=== PATIENT | female | born 1950 | race Caucasian/White ===

== ENCOUNTER → 2017-08-09 | Outpatient (CLI) | payer OTHER ==
[~2017-08-09] MED LIST: ACAI; ALBU90OI INH; ATEN25 PO; ATEN50 PO; Aspir 8181 MG PO; CELE200 PO; CITA10S PO; CITALOPRAM PO; CLON.1 PO; CLON.2 PO; CLON2 PO; Cymbalta60 MG PO; DICL25ER PO; DICL50ER PO; DIPH50 PO; DOXY100 PO; DULO60 PO; HYDACE5 PO; HYDRA25 PO; Hydrochlorothia25 MG PO; LEVSOD25 PO; LEVSOD88 PO; LISI20 PO; LOPE2C PO; LOSA25 PO; LOSA50 PO; MEDR2.5 PO; METF500 PO; METO100ER PO; METO50ER PO; OMEP20ER PO; OMEPRAZOLE PO; PANT40 PO; SOLI5 PO; TOLT2ER PO; Vitamin
[2017-08-11 15:17] LABS: HPV Genotype 16 Not Detected (NOTDET); HPV Genotype 18 Not Detected (NOTDET)
[2017-08-21 11:17] LABS: HPV High Risk Other Not Detected (NOTDET)
== END | disposition home or self-care (01) ==
LOC: LAB 10:58
PROVIDERS: Obstetrics & Gynecology
DX: Z01.419 Encounter for gynecological examination (general) (routine) without abnormal findings (principal)
CPT/HCPCS: 87624; G0123

== ENCOUNTER → 2018-11-13 | Outpatient (CLI) | payer OTHER | END | disposition home or self-care (01) | LOC: LAB SHORT 10:59 → LAB 10:59 | PROVIDERS: Advanced Practice Midwife | DX: Z01.419 Encounter for gynecological examination (general) (routine) without abnormal findings (principal) | CPT/HCPCS: G0123 ==

== ENCOUNTER 2019-03-12 18:09 | Emergency (ER) | payer OTHER ==
[~2019-03-12] VITALS: Ht 162.6 cm; Wt 145.2 kg
[2019-03-12 18:45] LABS: BASOPHILS ABSOLUTE AUTO 0.11 K/mm3 (0.00-0.23); BASOPHILS PERCENT AUTO 1 % (0-2); EOSINOPHILS ABSOLUTE AUTO 0.61 K/mm3 (0.00-0.68); EOSINOPHILS PERCENT AUTO 3 % (0-6); Hematocrit 48.7 % (33.0-51.0); Hemoglobin 15.5 g/dL (11.5-16.0); IMMATURE GRAN ABSOLUTE AUTO 0.19 K/mm3 (0.00-0.10); IMMATURE GRAN PERCENT AUTO 1 % (0-1); LYMPHOCYTES PERCENT AUTO 15 % (21-46); MONOCYTES ABSOLUTE AUTO 1.37 K/mm3 (0.16-1.47); MONOCYTES PERCENT AUTO 6 % (4-13); Mean Corpuscular HGB 29.2 pg (26.0-34.0); Mean Corpuscular HGB Conc 31.8 g/dL (31.5-36.5); Mean Corpuscular Volume 92 fL (80-100); Mean Platelet Volume 11.6 fL (9.1-12.4); NEUTROPHILS PERCENT AUTO 74 % (41-73); Platelet Count 355 K/mm3 (150-400); RDW Coefficient Variation 14.8 % (11.7-14.2); RDW Standard Deviation 49.5 fL (35.1-46.3); Red Blood Cell Count 5.31 M/mm3 (3.80-5.20); White Blood Cell Count 21.48 K/mm3 (4.00-11.30)
[2019-03-12 19:07] LABS: Albumin, Blood 3.3 g/dL (3.4-5.0); Albumin/Globulin Ratio 0.9 (0.8-1.8); Bilirubin, Total 0.3 mg/dL (0.1-1.0); Bun/Creatinine Ratio 41.1 (12.0-20.0); Calcium, Blood 9.8 mg/dL (8.5-10.1); Creatinine, Blood 1.12 mg/dL (0.40-1.00); Globulin, Blood 3.7 g/dL (2.2-4.0)
[2019-03-12 20:22] LABS: Source, Urine Clean Catch
[2019-03-12 20:28] LABS: Appearance, Urine Clear (Clear); Blood, Urine Neg (Neg); Color, Urine Amber (P-Yellow); Glucose Qualitative, Urine Neg (Neg); Ketones, Urine 1+ (Neg); Leukocyte Esterase, Urine 1+ (Neg); Nitrite, Urine Neg (Neg); Protein, Urine 1+ (Neg); Specific Gravity, Urine 1.025 (1.003-1.022); Urobilinogen, Urine 1+ (Normal)
[2019-03-12 20:33] LABS: Bilirubin, Urine 1+ (Neg)
[2019-03-12 20:34] LABS: Bacteria Many /hpf; Mucus Light (0-Heavy); Red Blood Cells, Urine 0-2 /hpf (0-2); Squamous Epithelial Cells Mod /hpf (Few)
[2019-03-12] MEDS ORDERED: CEPH500 PO (21:00)
== END 2019-03-12 21:17 | disposition home or self-care (01) ==
LOC: ER 18:09
PROVIDERS: Emergency Medicine
DX: D72.828 Other elevated white blood cell count (principal); Z88.2 Allergy status to sulfonamides; Z88.5 Allergy status to narcotic agent; Z91.040 Latex allergy status; Z88.8 Allergy status to other drugs, medicaments and biological substances; Z79.899 Other long term (current) drug therapy; Z79.82 Long term (current) use of aspirin; I10 Essential (primary) hypertension; E11.9 Type 2 diabetes mellitus without complications; F32.9 Major depressive disorder, single episode, unspecified; Z87.891 Personal history of nicotine dependence
CPT/HCPCS: 36415; 71046; 80053; 81001; 85025; 87086; 99283-25

== ENCOUNTER 2019-09-09 15:54 | Emergency (ER) | payer OTHER ==
[~2019-09-09] VITALS: Ht 162.6 cm; Wt 154.7 kg
[~2019-09-09 15:54] MED LIST changes: +CEPH500 PO
[2019-09-09 17:02] LABS: BASOPHILS ABSOLUTE AUTO 0.08 K/mm3 (0.00-0.23); BASOPHILS PERCENT AUTO 1 % (0-2); EOSINOPHILS ABSOLUTE AUTO 0.19 K/mm3 (0.00-0.68); EOSINOPHILS PERCENT AUTO 2 % (0-6); Hematocrit 49.3 % (33.0-51.0); Hemoglobin 15.3 g/dL (11.5-16.0); IMMATURE GRAN ABSOLUTE AUTO 0.07 K/mm3 (0.00-0.10); IMMATURE GRAN PERCENT AUTO 1 % (0-1); LYMPHOCYTES ABSOLUTE AUTO 1.96 K/mm3 (0.84-5.20); LYMPHOCYTES PERCENT AUTO 17 % (21-46); MONOCYTES ABSOLUTE AUTO 0.62 K/mm3 (0.16-1.47); MONOCYTES PERCENT AUTO 5 % (4-13); Mean Corpuscular HGB 28.5 pg (26.0-34.0); Mean Corpuscular Volume 92 fL (80-100); Mean Platelet Volume 11.4 fL (9.1-12.4); NEUTROPHILS ABSOLUTE AUTO 8.85 K/mm3 (1.96-9.15); NEUTROPHILS PERCENT AUTO 75 % (41-73); Platelet Count 332 K/mm3 (150-400); RDW Coefficient Variation 14.2 % (11.7-14.2); Red Blood Cell Count 5.37 M/mm3 (3.80-5.20); White Blood Cell Count 11.77 K/mm3 (4.00-11.30)
[2019-09-09 17:23] LABS: Alanine Aminotransfer (ALT/SGP 18 U/L (12-78); Albumin, Blood 3.5 g/dL (3.4-5.0); Albumin/Globulin Ratio 0.9 (0.8-1.8); Alk Phos 114 U/L (50-136); Anion Gap 3 mmol/L (6-16); Aspartate Aminotrans (AST/SGOT 9 U/L (12-37); Bilirubin, Total 0.3 mg/dL (0.1-1.0); Blood Urea Nitrogen 18 mg/dL (8-24); Bun/Creatinine Ratio 21.5 (12.0-20.0); CO2, Blood 29 mmol/L (21-32); Calcium, Blood 10.1 mg/dL (8.5-10.1); Chloride, Blood 105 mmol/L (98-108); Creatinine, Blood 0.84 mg/dL (0.40-1.00); Globulin, Blood 4.1 g/dL (2.2-4.0); Glomerular Filtration Rate >60 (60-); Glucose, Blood 207 mg/dL (70-99); Potassium, Blood 3.5 mmol/L (3.5-5.5); Sodium, Blood 137 mmol/L (136-145); Total Protein, Blood 7.6 g/dL (6.4-8.2)
== END 2019-09-09 20:57 | disposition home or self-care (01) ==
LOC: ER 15:54
PROVIDERS: Physician Assistant
DX: F41.9 Anxiety disorder, unspecified (principal); G25.2 Other specified forms of tremor; I10 Essential (primary) hypertension; E11.9 Type 2 diabetes mellitus without complications; F32.9 Major depressive disorder, single episode, unspecified; Z79.899 Other long term (current) drug therapy; Z88.2 Allergy status to sulfonamides; Z88.5 Allergy status to narcotic agent
CPT/HCPCS: 36415; 80053; 85025; 99283

== ENCOUNTER 2020-03-25 10:04 | Day surgery (SDC) | payer OTHER ==
[~2020-03-25] VITALS: Ht 165.1 cm; Wt 158.8 kg
--- NOTE | 2020-03-25 10:46 | NUR ---
03/25/20 [address] MCNALLY AT BEDSIDE ADMINISTERING 10CC 2% LIDOCAINE WITH 1:100,000 EPI INTO LEFT WRIST. PT MONITERED VIA PULSE OX.
--- NOTE | 2020-03-25 11:19 | NUR ---
03/25/20 Shoshana Batres PT TRANSFERED FROM BED TO CHAIR WITH ASSISTANCE. PT AWAKE, ALERT AND ORIENTED. PT VS WNL. PT DENIES ANY PAIN AT THIS TIME. PT TOLERATING SNACKS. ICE TO LEFT ARM AND ELEVATED.
== END 2020-03-25 11:37 | disposition home or self-care (01) ==
LOC: ORSCSDS 10:04
PROVIDERS: Orthopaedic Surgery
PROC: 01N54ZZ Release Median Nerve, Percutaneous Endoscopic Approach (ICD-10-PCS; principal; 2020-03-25 11:00)
DX: G56.02 Carpal tunnel syndrome, left upper limb (principal); I10 Essential (primary) hypertension; K21.9 Gastro-esophageal reflux disease without esophagitis; E66.01 Morbid (severe) obesity due to excess calories; Z68.43 Body mass index [BMI] 50.0-59.9, adult; Z79.82 Long term (current) use of aspirin; Z79.899 Other long term (current) drug therapy
CPT/HCPCS: 82947; J0690; J2250; J2710; J3010; J7120

== ENCOUNTER 2020-09-17 01:37 | Inpatient (IN) | payer OTHER, MEDICARE ==
[~2020-09-17] VITALS: Ht 162.6 cm; Wt 160.7 kg
[~2020-09-17 01:37] MED LIST changes: -LOSA50 PO; +LOSARTAN POTAS100 M1 PO; +METO100 PO; -METO100ER PO
[2020-09-17 05:28] LABS: International Normalized Ratio 1.02; Prothrombin Time Results 10.9 Sec (9.7-11.5)
[2020-09-17 05:45] LABS: Influenza A, PCR NEGATIVE (NEGATIVE); Influenza B, PCR NEGATIVE (NEGATIVE); Resp Syncytial Virus, PCR NEGATIVE (NEGATIVE); SARS-Cov-2 (COVID-19) PCR, MMC NEGATIVE (NEGATIVE)
[2020-09-17 05:48] LABS: D-Dimer, Quantitative 0.91 mg/L FEU (0.00-0.52)
[2020-09-17 05:50] LABS: BASOPHILS ABSOLUTE AUTO 0.12 K/mm3 (0.00-0.23); BASOPHILS PERCENT AUTO 1 % (0-2); EOSINOPHILS ABSOLUTE AUTO 0.03 K/mm3 (0.00-0.68); EOSINOPHILS PERCENT AUTO 0 % (0-6); Hematocrit 47.7 % (33.0-51.0); Hemoglobin 14.3 g/dL (11.5-16.0); IMMATURE GRAN ABSOLUTE AUTO 0.27 K/mm3 (0.00-0.10); IMMATURE GRAN PERCENT AUTO 1 % (0-1); LYMPHOCYTES ABSOLUTE AUTO 1.23 K/mm3 (0.84-5.20); LYMPHOCYTES PERCENT AUTO 6 % (21-46); MONOCYTES ABSOLUTE AUTO 1.08 K/mm3 (0.16-1.47); MONOCYTES PERCENT AUTO 5 % (4-13); Mean Corpuscular HGB 27.9 pg (26.0-34.0); Mean Corpuscular Volume 93 fL (80-100); Mean Platelet Volume 12.2 fL (9.1-12.4); NEUTROPHILS ABSOLUTE AUTO 18.43 K/mm3 (1.96-9.15); NEUTROPHILS PERCENT AUTO 87 % (41-73); Platelet Count 306 K/mm3 (150-400); RDW Coefficient Variation 14.6 % (11.7-14.2); RDW Standard Deviation 50.4 fL (35.1-46.3); Red Blood Cell Count 5.12 M/mm3 (3.80-5.20); White Blood Cell Count 21.16 K/mm3 (4.00-11.30)
[2020-09-17 05:50] LABS: Bun/Creatinine Ratio 18.3 (12.0-20.0); Calcium, Blood 9.4 mg/dL (8.5-10.1); Creatinine, Blood 0.99 mg/dL (0.40-1.00)
[2020-09-17 07:48] LABS: Troponin I 0.353 ng/mL (0.000-0.040)
--- NOTE | 2020-09-17 10:01 | NUR ---
ECHOCARDIOGRAM COMPLETE
[2020-09-17] MEDS ORDERED: LOSARTAN POTAS100 MG PO (13:10)
[2020-09-17] MEDS ORDERED: ROSU5 PO (13:11)
[2020-09-17] MEDS ORDERED: MINO2.5 PO (13:12)
[2020-09-17] MEDS ORDERED: TOLT4 PO (13:13)
[2020-09-17] MEDS ORDERED: EUTHYROX125 MCG PO (13:14)
[2020-09-17] MEDS ORDERED: VENL75ER PO (13:21)
[2020-09-17] MEDS ORDERED: HYDROCODONE-AC1 EA11 PO (13:53)
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
[2020-09-17 14:54] LABS: Base Excess Venous 4.6 mmol/L; Bicarbonate Venous 27.6 mmol/L (24.0-30.0); PCO2 Venous 52 mmHg (38-42); PO2 Venous 111 mmHg (38-42); pH Blood Venous 7.37 (7.34-7.37)
--- NOTE | 2020-09-17 18:22 | NUR ---
SHIFT SUMMARY NO ACUTE EVENTS THIS SHIFT, VSS. PATIENT ALERT AND ORIENTED, O2 STABLE IN 90S ON 4 L NASAL CANNULA. PATIENT DENIES CHEST PAIN/PRESSURE THIS SHIFT, ENDORSES SHORTNESS OF BREATH. TROP. TRENDED DOWN THIS SHIFT, FROM 0.35 TO 0.18. PATIENT IS ABLE TO MINIMALLY ASSIST WITIH REPOSITIONING IN BED, NO AMBULATION NOTED THIS SHIFT. PATIENT ENDORSES USING A WALKER AT HOME. HEPARIN GTT STOPPED THIS SHIFT, CHANGED TO LOVENOX.
[2020-09-18 05:01] LABS: BASOPHILS ABSOLUTE AUTO 0.07 K/mm3 (0.00-0.23); BASOPHILS PERCENT AUTO 1 % (0-2); EOSINOPHILS ABSOLUTE AUTO 0.41 K/mm3 (0.00-0.68); EOSINOPHILS PERCENT AUTO 3 % (0-6); Hematocrit 44.5 % (33.0-51.0); Hemoglobin 13.5 g/dL (11.5-16.0); IMMATURE GRAN ABSOLUTE AUTO 0.09 K/mm3 (0.00-0.10); IMMATURE GRAN PERCENT AUTO 1 % (0-1); LYMPHOCYTES ABSOLUTE AUTO 2.05 K/mm3 (0.84-5.20); LYMPHOCYTES PERCENT AUTO 15 % (21-46); MONOCYTES ABSOLUTE AUTO 1.17 K/mm3 (0.16-1.47); MONOCYTES PERCENT AUTO 8 % (4-13); Mean Corpuscular HGB 27.8 pg (26.0-34.0); Mean Corpuscular HGB Conc 30.3 g/dL (31.5-36.5); Mean Corpuscular Volume 92 fL (80-100); Mean Platelet Volume 11.5 fL (9.1-12.4); NEUTROPHILS ABSOLUTE AUTO 10.07 K/mm3 (1.96-9.15); NEUTROPHILS PERCENT AUTO 73 % (41-73); Platelet Count 294 K/mm3 (150-400); RDW Coefficient Variation 14.6 % (11.7-14.2); RDW Standard Deviation 49.7 fL (35.1-46.3); Red Blood Cell Count 4.86 M/mm3 (3.80-5.20); White Blood Cell Count 13.86 K/mm3 (4.00-11.30)
[2020-09-18 05:32] LABS: Albumin, Blood 3.1 g/dL (3.4-5.0); Albumin/Globulin Ratio 0.8 (0.8-1.8); Bilirubin, Total 0.4 mg/dL (0.1-1.0); Bun/Creatinine Ratio 16.2 (12.0-20.0); Calcium, Blood 9.8 mg/dL (8.5-10.1); Creatinine, Blood 1.48 mg/dL (0.40-1.00); Globulin, Blood 4.1 g/dL (2.2-4.0); Phosphorus, Blood 2.3 mg/dL (2.5-4.9); Potassium, Blood 3.9 mmol/L (3.5-5.5); Total Protein, Blood 7.2 g/dL (6.4-8.2)
--- NOTE | 2020-09-18 06:09 | NUR ---
SHIFT SUMMARY PT ALERT AND ORIENTED X 4. HR STABLE. BP STABLE. OXYGEN SATURATION MAINTAINED ABOVE 92% ON 4 L OF OXYGEN VIA NC. PT TURNED Q 2 HRS AND NEEDED FOR COMFORT. DEPENDS IN PLACE FOR INCONTINENCE. PT IN ENTERIC PRECAUTIONS FOR RULE OUT C-DIF. NO CP REPORTED. PT REPORTS PAIN IN L HIP, MEDICATED PER EMAR. PT REPORTS RELIEF. WILL CONTINUE TO MONITOR UNTIL REP0RT GIVEN TO DAYSHIFT RN.
[2020-09-18 12:28] LABS: Source, Urine Voided
[2020-09-18 12:36] LABS: Appearance, Urine Hazy (Clear); Bilirubin, Urine Neg (Neg); Blood, Urine 1+ (Neg); Color, Urine Yellow (P-Yellow); Glucose Qualitative, Urine Neg (Neg); Ketones, Urine Neg (Neg); Leukocyte Esterase, Urine 3+ (Neg); Nitrite, Urine Neg (Neg); Protein, Urine 2+ (Neg); Urobilinogen, Urine NORM (Normal)
[2020-09-18 12:50] LABS: Bacteria Many /hpf; Red Blood Cells, Urine 0-2 /hpf (0-2); Squamous Epithelial Cells Many /hpf (Few); White Blood Cells, Urine 25-50 /hpf (0-5)
--- NOTE | 2020-09-18 14:03 | NUR ---
REPORT GIVEN TO LILLY NG ON MEDICAL.
--- NOTE | 2020-09-18 18:48 | NUR ---
SHIFT SUMMARY/TRANSFER FROM PCU PT WAS TRANSFERRED FROM PCU AT APPROX 1450. REPORT TAKEN FROM WESTLEY COUGHLIN RN IN PCU. PT AxOx4. PLEASANT AND COOPERATIVE WITH CARE. VERY [place]. PER COLLECTION AGENT, TELE RUNNING AT SR 80. IN ROOM TODAY FOR VISIT AND UPDATE. PT ON 2L O2 WITHOUT DIFFICULTY BREATHING. WHEEZE IN MAG UPPER LOBES NOTED. SKIN RED IN PERIAREA, POWDER APPLIED. APPETITE GOOD. VITALS REVIEWED. PT CURRENTLY RESTING IN BED WITH CALL LIGHT IN REACH. DENIES ANY NEEDS AT THIS TIME.
[2020-09-19 04:33] LABS: BASOPHILS ABSOLUTE AUTO 0.07 K/mm3 (0.00-0.23); BASOPHILS PERCENT AUTO 1 % (0-2); EOSINOPHILS ABSOLUTE AUTO 0.43 K/mm3 (0.00-0.68); EOSINOPHILS PERCENT AUTO 4 % (0-6); Hematocrit 44.1 % (33.0-51.0); Hemoglobin 13.7 g/dL (11.5-16.0); IMMATURE GRAN ABSOLUTE AUTO 0.05 K/mm3 (0.00-0.10); IMMATURE GRAN PERCENT AUTO 0 % (0-1); LYMPHOCYTES ABSOLUTE AUTO 1.89 K/mm3 (0.84-5.20); LYMPHOCYTES PERCENT AUTO 16 % (21-46); MONOCYTES ABSOLUTE AUTO 1.01 K/mm3 (0.16-1.47); MONOCYTES PERCENT AUTO 9 % (4-13); Mean Corpuscular HGB 28.4 pg (26.0-34.0); Mean Corpuscular HGB Conc 31.1 g/dL (31.5-36.5); Mean Corpuscular Volume 91 fL (80-100); Mean Platelet Volume 11.3 fL (9.1-12.4); NEUTROPHILS PERCENT AUTO 71 % (41-73); Platelet Count 302 K/mm3 (150-400); RDW Coefficient Variation 14.8 % (11.7-14.2); RDW Standard Deviation 49.9 fL (35.1-46.3); Red Blood Cell Count 4.83 M/mm3 (3.80-5.20); White Blood Cell Count 11.75 K/mm3 (4.00-11.30)
[2020-09-19 04:52] LABS: Bun/Creatinine Ratio 24.5 (12.0-20.0); Calcium, Blood 9.9 mg/dL (8.5-10.1); Creatinine, Blood 1.47 mg/dL (0.40-1.00); Phosphorus, Blood 3.8 mg/dL (2.5-4.9); Potassium, Blood 3.8 mmol/L (3.5-5.5)
--- NOTE | 2020-09-19 07:31 | NUR ---
Patient woke with estremely strong hacking cough in addition to her ongoing insp/exp wheezes. RT provided breathing tx three times overnight, and order was obtained for Ryder DM for relief of cough discomfort. Patient had no complaints of pain, and was able to participate in turning and personal care with staff. She states she is motivated to work with PT today.
--- NOTE | 2020-09-19 16:31 | NUR ---
SUMMARY PT IS A/O X3, PLEASANT AFFECT. SHE STATE CONTINUING WEAKNESS/FATIGUE. STATE NO CHEST PAIN, SOB OR UNUSUAL N/T EXTREMITIES. NSR/TELE, HR 70'S, BP STABLE. DR GONZALESTRATE STATE WILL PROPBABLY HAVE OUTPT STRESS TEST. STATE WILL CONTINUE TO TX UPPER RESP INFECTION/BRONCHITIS & UTI. IV LEVAQUIN GIVEN THIS AM. LUNGS HAVE BEEN WHEEZY UPPER LOBES, DR ORDER NEB TX'S. RESPTHER PLACE HER BACK ON O2 @ 2L, BIOX 94-96%. JEANNETTE GOT HER UP TODAY, STANDING @ BEDSIDE HOWEVER UNABLE TO AMBULATE. SHE HAS BEEN USING ATTENDS OR BEDPAN TO VOID.
--- NOTE | 2020-09-19 21:32 | NUR ---
Patient refused HS clonidine and states this was a medication discontinued by her primary. She said she ran out of another BP med and "restarted the clonidine in it's place". She was quite clear on this. Her sent it along with her here as it was in her medicine box.
--- NOTE | 2020-09-19 23:37 | NUR ---
REQUEST TO PLATE MAKER FOR BARIATRIC BED AND/OR LIFT ROOM. OSCAR IS VERY MOTIVATED TO ASSIST IN REPOSITIONING AND PERSONAL CARE. hOWEVER, GIVEN HER SIZE, SHE CANNOT EVEN TURN IN EACH DIRECTION IN A REGULAR SIZE HOSPITAL BED. FOUR STAFF MEMBERS WERE NEEDED TO MOVE OSCAR TO HER SIDE DURING REPOSITIONING. PATIENT OF COURSE DID NOT COMPLAIN IT ISN'T IN HER NATURE. HOWEVER THIS CAN'T BE GOOD FOR A PATIENT WHO NEEDS ENCOURAGEMENT AND POSITIVE VICTORIES.
[2020-09-20 05:12] LABS: BASOPHILS ABSOLUTE AUTO 0.06 K/mm3 (0.00-0.23); BASOPHILS PERCENT AUTO 1 % (0-2); EOSINOPHILS ABSOLUTE AUTO 0.45 K/mm3 (0.00-0.68); EOSINOPHILS PERCENT AUTO 4 % (0-6); Hematocrit 42.8 % (33.0-51.0); Hemoglobin 13.1 g/dL (11.5-16.0); IMMATURE GRAN ABSOLUTE AUTO 0.04 K/mm3 (0.00-0.10); IMMATURE GRAN PERCENT AUTO 0 % (0-1); LYMPHOCYTES ABSOLUTE AUTO 2.03 K/mm3 (0.84-5.20); LYMPHOCYTES PERCENT AUTO 18 % (21-46); MONOCYTES ABSOLUTE AUTO 0.98 K/mm3 (0.16-1.47); MONOCYTES PERCENT AUTO 9 % (4-13); Mean Corpuscular HGB 27.9 pg (26.0-34.0); Mean Corpuscular HGB Conc 30.6 g/dL (31.5-36.5); Mean Corpuscular Volume 91 fL (80-100); Mean Platelet Volume 11.3 fL (9.1-12.4); NEUTROPHILS ABSOLUTE AUTO 7.45 K/mm3 (1.96-9.15); NEUTROPHILS PERCENT AUTO 68 % (41-73); Platelet Count 299 K/mm3 (150-400); RDW Coefficient Variation 14.9 % (11.7-14.2); RDW Standard Deviation 49.8 fL (35.1-46.3); Red Blood Cell Count 4.69 M/mm3 (3.80-5.20); White Blood Cell Count 11.01 K/mm3 (4.00-11.30)
[2020-09-20 06:01] LABS: Albumin, Blood 2.8 g/dL (3.4-5.0); Albumin/Globulin Ratio 0.7 (0.8-1.8); Bilirubin, Total 0.3 mg/dL (0.1-1.0); Bun/Creatinine Ratio 25.9 (12.0-20.0); Calcium, Blood 9.5 mg/dL (8.5-10.1); Creatinine, Blood 1.43 mg/dL (0.40-1.00); Globulin, Blood 3.9 g/dL (2.2-4.0); Magnesium, Blood 1.8 mg/dL (1.6-2.4); Potassium, Blood 3.8 mmol/L (3.5-5.5); Total Protein, Blood 6.7 g/dL (6.4-8.2); Troponin I 0.019 ng/mL (0.000-0.040)
--- NOTE | 2020-09-20 06:49 | NUR ---
Patient alert and oriented, pleasant and cooperative with care. Tood guafenisen and pain pill twice overnight. Still has harsh raspy cough, but not nearly as frequently. Request made for Bariatric bed so that patient will have room to move and also have enough room to be repositioned without risk of injury to her or staff who are assisting. Christine appears very motivated to turn her life around and states she'll do what she is told to get strong again.
[2020-09-20] MEDS ORDERED: LOSA50 PO (10:28)
[2020-09-20] MEDS ORDERED: ACET325 PO (10:33)
[2020-09-20] MEDS ORDERED: Ventolin/Prove6.7 GM INH (10:34)
[2020-09-20] MEDS ORDERED: ROBITUSSIN DM PO (10:41)
[2020-09-20] MEDS ORDERED: FAMO20 PO (10:41)
[2020-09-20] MEDS ORDERED: COMBIVENT RESPIM4 G1 INH (10:42)
[2020-09-20] MEDS ORDERED: FURO20 PO (10:42)
[2020-09-20] MEDS ORDERED: LEVFLO500 PO (10:43)
[2020-09-20] MEDS ORDERED: ONDA4ODT SL (10:44)
[2020-09-20] MEDS ORDERED: MELATONIN 5 MG1 EACH PO (10:44)
[2020-09-20] MEDS ORDERED: PHOS-NAK PO (10:46)
[2020-09-20] MEDS ORDERED: VISBIOME 112.51 EACH PO (10:48)
--- NOTE | 2020-09-20 16:33 | NUR ---
SUMMARY PT IS A/O X3, PLEASANT AFFECT. SHE STATE CONTINUING WEAKNESS FATIGUE. SHE IS UNABLE TO AMBULATE @ THIS TIME, HEAVY 2 ASSIST TO STAND. REQUIRE FREQUENT REPOSITION & PILLOWS FOR SUPPORT/COMFORT. THIS AM SHE HAD A PERIOD OF COUGHING & SOB. LUNGS DECREASED w UPPER AIRWAY EXP WHEEZE. ROBITUSSIN GIVEN, RT PROVIDING NEBS. WHEEZE & SOB HAS IMPROVED THIS AFTERNOON. VSS. SHE HAD BEDBATH TODAY. HEEL PROTECTORS PROVIDED. DR GONZALESTRATE STATE PLAN FOR HER TO GO HOME w HOMEHEALTH POSSIBLY TOMORROW.
[2020-09-21 05:03] LABS: BASOPHILS ABSOLUTE AUTO 0.03 K/mm3 (0.00-0.23); BASOPHILS PERCENT AUTO 0 % (0-2); EOSINOPHILS ABSOLUTE AUTO 0.01 K/mm3 (0.00-0.68); EOSINOPHILS PERCENT AUTO 0 % (0-6); Hematocrit 41.5 % (33.0-51.0); Hemoglobin 13.2 g/dL (11.5-16.0); IMMATURE GRAN ABSOLUTE AUTO 0.06 K/mm3 (0.00-0.10); IMMATURE GRAN PERCENT AUTO 1 % (0-1); LYMPHOCYTES ABSOLUTE AUTO 1.32 K/mm3 (0.84-5.20); LYMPHOCYTES PERCENT AUTO 10 % (21-46); MONOCYTES ABSOLUTE AUTO 0.95 K/mm3 (0.16-1.47); MONOCYTES PERCENT AUTO 8 % (4-13); Mean Corpuscular HGB 28.7 pg (26.0-34.0); Mean Corpuscular HGB Conc 31.8 g/dL (31.5-36.5); Mean Corpuscular Volume 90 fL (80-100); Mean Platelet Volume 11.7 fL (9.1-12.4); NEUTROPHILS ABSOLUTE AUTO 10.37 K/mm3 (1.96-9.15); NEUTROPHILS PERCENT AUTO 81 % (41-73); Platelet Count 287 K/mm3 (150-400); RDW Coefficient Variation 14.7 % (11.7-14.2); RDW Standard Deviation 49.1 fL (35.1-46.3); White Blood Cell Count 12.74 K/mm3 (4.00-11.30)
[2020-09-21 05:24] LABS: Bun/Creatinine Ratio 29.9 (12.0-20.0); Calcium, Blood 9.6 mg/dL (8.5-10.1); Creatinine, Blood 1.07 mg/dL (0.40-1.00); Magnesium, Blood 1.7 mg/dL (1.6-2.4); Potassium, Blood 3.8 mmol/L (3.5-5.5)
--- NOTE | 2020-09-21 08:12 | NUR ---
Patient slept intermittantly overnight. Had 3 large episodes of urine incontinence overnight. Christine did appear to be able to turn in bed a little better last night. VSS. Complaints of moderate pain (chronic) in low back, as well as more sharp throat pain with her barking non productive cough. No change in skin issues. still red in dependent areas and under pannus and groin folds. All areas were cleansed and dried thoroughly with each reposition/brief change
--- NOTE | 2020-09-21 18:17 | NUR ---
SHIFT SUMMARY PT MOBILITY IMPROVING. PT ABLE TO GET HERSELF TO SIDE OF BED BY HERSELF. 1P ASSIST TRANSFER. PT SAT UP IN CHAIR FOR LUNCH TODAY AND RECLINED FOR A A FEW HOURS. NO OTHER ACUTE CHANGES IN ASSESSMENT AT THIS TIME. VS REVIEWED. PT UP ON SIDE OF BED, EATING DINNER. CALL LIGHT IN REACH. MEDICATED ONCE FOR PAIN TODAY. PT IS A POSSIBLE DC TOMORROW.
--- NOTE | 2020-09-22 04:07 | NUR ---
SUMMARY NO NEW ISSUES NOTED. PT HAS BEEN RESTING WELL T/O SHIFT. PT DENIES SOB OR CX PAIN. PT EAGER TO GO HOME. PT CURRENTLY SLEEPING IN NO DISTRESS. CALL LIGHT IN REACH.
[2020-09-22] MEDS ORDERED: PRED20 PO (14:32)
--- NOTE | 2020-09-22 14:55 | NUR ---
Patient is sitting on a chair and alert. Patient tells me that she will DC today. Patient says that all tests came back negative and that nothing was discovered that would explain the symtoms she stated that she had. She did explain that the good news is that this hospitalization was a wake up call to live a whole lot healthier. She tells me the practices she will begin and the support system she has in place to help her reach her health goals. I reinforce helpful attitudes and practices and provide therapeutic listening and prayer. Patient responds well and shows signs of a greater resolve. I will continue to remain available to patient and family.
--- NOTE | 2020-09-22 15:13 | NUR ---
DISCHARGE PT DISCHARGED AT 1510. PT TRANSFERING WITH 1P ASSIST TO [facility] [place]. PT GIVEN MIRALAX ONCE THIS SHIFT. ENCOURAGED TO CONTINUE PRUNE JUICE AT HOME. PT & SPOUSE EDUCATED ON MED CHANGES, NEW MEDS, AND FOLLOW UP INSTRUCTIONS. FOLLOW UP APPOINTMENT MADE FOR THE PT. BOTH DENY ANY FURTHER QUESTIONS AT THIS TIME. NO ACUTE CHANGES PRIOR TO DC. PT WHEELED OUT BY AIDE & DRIVEN HOME BY SPOUSE.
[2021-01-04] MEDS ORDERED: Catapres0.2 MG PO (12:56)
[2021-01-04] MEDS ORDERED: Provera2.5 MG PO (12:57)
[2021-01-04] MEDS ORDERED: KETO15TC TOP (12:57)
[2021-01-04] MEDS ORDERED: OMEP20ER PO (12:58)
== END 2020-09-22 15:12 | disposition home or self-care (01) | DRG 871 ==
LOC: ER 01:37 → ERHOLD 01:38 → PCU 01:38 → MEDS 09-18 14:51 → ENPENDDIS 09-21 10:02 → MEDS 09-22 15:12
PROVIDERS: Family Medicine; Student in an Organized Health Care Education/Training Program; ADMIT Internal Medicine
DX: A41.9 Sepsis, unspecified organism (principal); J96.01 Acute respiratory failure with hypoxia; I21.A1 Myocardial infarction type 2; N39.0 Urinary tract infection, site not specified; E11.69 Type 2 diabetes mellitus with other specified complication; F41.1 Generalized anxiety disorder; E66.01 Morbid (severe) obesity due to excess calories; I10 Essential (primary) hypertension; E78.5 Hyperlipidemia, unspecified; F43.10 Post-traumatic stress disorder, unspecified; Z79.82 Long term (current) use of aspirin; Z20.822 Contact with and (suspected) exposure to COVID-19; R65.20 Severe sepsis without septic shock
CPT/HCPCS: 0241U; 36415; 71045; 71260; 80048; 80053; 81001; 82803; 82947; 83735; 83880; 84100; 84145; 84484; 85025; 85379; 85610; 85730; 93005; 93010; 93306; 94640; 94667; 94668; 94760; 94761; 96365; 96366; 96372; 96374; 96375; 96376; 97110; 97162; 97166; 97530; 99285-25; A9270; G0378; J1644; J1650; J1940; J1956; J2405; J7512; Q9967

== ENCOUNTER 2021-01-08 07:40 | Day surgery (SDC) | payer OTHER ==
[~2021-01-08] VITALS: Ht 162.6 cm; Wt 151.0 kg
[~2021-01-08 07:40] MED LIST changes: +ACET325 PO; +COMBIVENT RESPIM4 G1 INH; +Catapres0.2 MG PO; +EUTHYROX125 MCG PO; +FAMO20 PO; +FURO20 PO; +HYDROCODONE-AC1 EA11 PO; +KETO15TC TOP; +LEVFLO500 PO; +LOSA50 PO; +LOSARTAN POTAS100 MG PO; +MELATONIN 5 MG1 EACH PO; +MINO2.5 PO; +ONDA4ODT SL; +PHOS-NAK PO; +PRED20 PO; +Provera2.5 MG PO; +ROBITUSSIN DM PO; +ROSU5 PO; +TOLT4 PO; +VENL75ER PO; +VISBIOME 112.51 EACH PO; +Ventolin/Prove6.7 GM INH
--- NOTE | 2021-01-08 09:42 | NUR ---
01/08/21 0942 Nydia Cortez History, Chart, Medications and Allergies reviewed before start of procedure. See Anesthesia record, CARE BY . MONITOR INTACT WITH CONTINUOUS PULSE OXIMETRY AND INTERMITTENT BP.
--- NOTE | 2021-01-08 11:00 | NUR ---
Discharge instructions reviewed with patient. Patient verbalizes understanding. Copy given to patient to take home. PT NEEL PO WELL. OUT TO RIDE.
== END 2021-01-08 11:00 | disposition home or self-care (01) ==
LOC: ORSCMMR 07:40 → ORD 10:00 → ORSCMMR 11:00
PROVIDERS: Internal Medicine Gastroenterology
PROC: 0DBE8ZX Excision of Large Intestine, Via Natural or Artificial Opening Endoscopic, Diagnostic (ICD-10-PCS; principal; 2021-01-08 10:00)
PROC: 0DBM8ZX Excision of Descending Colon, Via Natural or Artificial Opening Endoscopic, Diagnostic (ICD-10-PCS; principal; 2021-01-08 10:00)
DX: Z12.11 Encounter for screening for malignant neoplasm of colon (principal); Z80.0 Family history of malignant neoplasm of digestive organs; D12.2 Benign neoplasm of ascending colon; D12.4 Benign neoplasm of descending colon; E11.9 Type 2 diabetes mellitus without complications; Z79.899 Other long term (current) drug therapy; Z79.82 Long term (current) use of aspirin; I10 Essential (primary) hypertension; E03.9 Hypothyroidism, unspecified; I25.10 Atherosclerotic heart disease of native coronary artery without angina pectoris; E66.01 Morbid (severe) obesity due to excess calories; Z68.43 Body mass index [BMI] 50.0-59.9, adult
CPT/HCPCS: 82947; 88305; J2001; J2704; J7120

== ENCOUNTER 2021-06-03 12:01 | Inpatient (IN) | payer OTHER ==
[~2021-06-03] VITALS: Ht 170.2 cm; Wt 154.3 kg
[~2021-06-03 12:01] MED LIST changes: -EUTHYROX125 MCG PO; -FAMO20 PO; -FURO20 PO; -HYDROCODONE-AC1 EA11 PO; -LOSA50 PO; -METO100 PO; -MINO2.5 PO; -ROSU5 PO; -TOLT4 PO; -VENL75ER PO
[2021-06-03 12:39] LABS: BASOPHILS ABSOLUTE AUTO 0.07 K/mm3 (0.00-0.23); BASOPHILS PERCENT AUTO 1 % (0-2); EOSINOPHILS ABSOLUTE AUTO 0.14 K/mm3 (0.00-0.68); EOSINOPHILS PERCENT AUTO 1 % (0-6); Hematocrit 44.6 % (33.0-51.0); Hemoglobin 13.6 g/dL (11.5-16.0); IMMATURE GRAN ABSOLUTE AUTO 0.11 K/mm3 (0.00-0.10); IMMATURE GRAN PERCENT AUTO 1 % (0-1); LYMPHOCYTES ABSOLUTE AUTO 1.65 K/mm3 (0.84-5.20); LYMPHOCYTES PERCENT AUTO 13 % (21-46); MONOCYTES ABSOLUTE AUTO 0.72 K/mm3 (0.16-1.47); MONOCYTES PERCENT AUTO 6 % (4-13); Mean Corpuscular HGB 27.2 pg (26.0-34.0); Mean Corpuscular HGB Conc 30.5 g/dL (31.5-36.5); Mean Corpuscular Volume 89 fL (80-100); Mean Platelet Volume 11.4 fL (9.1-12.4); NEUTROPHILS ABSOLUTE AUTO 10.26 K/mm3 (1.96-9.15); NEUTROPHILS PERCENT AUTO 79 % (41-73); Platelet Count 330 K/mm3 (150-400); RDW Coefficient Variation 15.6 % (11.7-14.2); RDW Standard Deviation 50.8 fL (35.1-46.3); White Blood Cell Count 12.95 K/mm3 (4.00-11.30)
[2021-06-03 12:53] LABS: Alanine Aminotransfer (ALT/SGP 12 U/L (12-78); Albumin, Blood 2.9 g/dL (3.4-5.0); Albumin/Globulin Ratio 0.6 (0.8-1.8); Alk Phos 104 U/L (50-136); Anion Gap 9 mmol/L (6-16); Aspartate Aminotrans (AST/SGOT 16 U/L (12-37); Bilirubin, Total 0.5 mg/dL (0.1-1.0); Blood Urea Nitrogen 15 mg/dL (8-24); Bun/Creatinine Ratio 17.2 (12.0-20.0); CO2, Blood 28 mmol/L (21-32); Calcium, Blood 9.9 mg/dL (8.5-10.1); Chloride, Blood 102 mmol/L (98-108); Creatinine, Blood 0.87 mg/dL (0.40-1.00); Globulin, Blood 4.6 g/dL (2.2-4.0); Glomerular Filtration Rate >60 (60-); Glucose, Blood 174 mg/dL (70-99); Potassium, Blood 3.9 mmol/L (3.5-5.5); Sodium, Blood 139 mmol/L (136-145); Total Protein, Blood 7.5 g/dL (6.4-8.2)
[2021-06-03 13:34] LABS: International Normalized Ratio 1.04; Prothrombin Time Results 10.9 Sec (9.7-11.5)
[2021-06-03 13:46] LABS: SARS-Cov-2 (COVID-19) PCR, MMC NEGATIVE (NEGATIVE)
[2021-06-03 14:06] LABS: Source, Urine Catheter
[2021-06-03 14:12] LABS: Appearance, Urine Cloudy (Clear); Bilirubin, Urine Neg (Neg); Blood, Urine Neg (Neg); Color, Urine Yellow (P-Yellow); Glucose Qualitative, Urine Neg (Neg); Ketones, Urine Neg (Neg); Leukocyte Esterase, Urine Neg (Neg); Nitrite, Urine Neg (Neg); Protein, Urine 3+ (Neg); Specific Gravity, Urine 1.015 (1.003-1.022); Urobilinogen, Urine 1+ (Normal)
[2021-06-03 14:41] LABS: Bacteria Few /hpf; Mucus Mod (0-Heavy); Red Blood Cells, Urine 0-2 /hpf (0-2); Squamous Epithelial Cells Mod /hpf (Few); White Blood Cells, Urine 0-2 /hpf (0-5)
[2021-06-03] MEDS ORDERED: MYRBETRIQ50 MG PO (16:30)
[2021-06-03] MEDS ORDERED: NYSTOP15 GM TOP (16:31)
[2021-06-03] MEDS ORDERED: FAMO20 PO (16:31)
[2021-06-03] MEDS ORDERED: LOSA50 PO (16:32)
[2021-06-03] MEDS ORDERED: EUTHYROX125 MCG PO (16:32)
[2021-06-03] MEDS ORDERED: MINO2.5 PO (16:33)
[2021-06-03] MEDS ORDERED: ROSU5 PO (16:33)
[2021-06-03] MEDS ORDERED: METO50 PO (16:33)
[2021-06-03] MEDS ORDERED: VENL75ER PO (16:35)
[2021-06-03] MEDS ORDERED: HYDROCODONE-AC1 EA11 PO (16:35)
[2021-06-03] MEDS ORDERED: FURO20 PO (16:36)
[2021-06-03] MEDS ORDERED: TOLT4 PO (16:36)
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
[2021-06-03] MEDS ORDERED: Aspir 8181 MG PO (18:48)
[2021-06-03] MEDS ORDERED: MELATONIN5 M1 PO (18:49)
[2021-06-04 04:14] LABS: BASOPHILS ABSOLUTE AUTO 0.06 K/mm3 (0.00-0.23); BASOPHILS PERCENT AUTO 1 % (0-2); EOSINOPHILS ABSOLUTE AUTO 0.06 K/mm3 (0.00-0.68); EOSINOPHILS PERCENT AUTO 1 % (0-6); Hematocrit 41.3 % (33.0-51.0); Hemoglobin 12.7 g/dL (11.5-16.0); IMMATURE GRAN ABSOLUTE AUTO 0.06 K/mm3 (0.00-0.10); IMMATURE GRAN PERCENT AUTO 1 % (0-1); LYMPHOCYTES ABSOLUTE AUTO 1.39 K/mm3 (0.84-5.20); LYMPHOCYTES PERCENT AUTO 11 % (21-46); MONOCYTES ABSOLUTE AUTO 0.91 K/mm3 (0.16-1.47); MONOCYTES PERCENT AUTO 7 % (4-13); Mean Corpuscular HGB 27.1 pg (26.0-34.0); Mean Corpuscular HGB Conc 30.8 g/dL (31.5-36.5); Mean Corpuscular Volume 88 fL (80-100); Mean Platelet Volume 11.2 fL (9.1-12.4); NEUTROPHILS ABSOLUTE AUTO 9.75 K/mm3 (1.96-9.15); NEUTROPHILS PERCENT AUTO 80 % (41-73); Platelet Count 278 K/mm3 (150-400); RDW Coefficient Variation 15.6 % (11.7-14.2); RDW Standard Deviation 50.4 fL (35.1-46.3); Red Blood Cell Count 4.68 M/mm3 (3.80-5.20); White Blood Cell Count 12.23 K/mm3 (4.00-11.30)
--- NOTE | 2021-06-04 04:33 | NUR ---
SHIFT SUMMARY PATIENT ALERT AND WAKES EASILY TO VERBAL STIMULI. ORIENTED TO PLACE, SELF, TIME AND SURROUNDINGS. EYES GAZE TO RIGHT AND DO NOT TRACK PAST MIDLINE. LEFT FACIAL DROOP PRESENT. PATIENT ATTEMPTS TO COMMUNICATE WITH STAFF BUT SPEECH IS GARBLED AND PATIENT DROOLING, SUCTION AT BEDSIDE. MEDICATED ONCE PER EMAR FOR HYPERTENSION. SYSTOLIC BP RANGING FROM 130-200, SEE VITALS. MEDICATED FOR PAIN 2X THIS SHIFT. ORTIZ IN PLACE DRAINING DARK YELLOW URINE. NO OTHER SIGNIFICANT CHANGES THIS SHIFT. PATIENT MOVED FROM PCU 8 TO PCU 16 AT BEGINNING OF SHIFT DUE TO PCU 16 BEING A LIFT ROOM.
[2021-06-04 04:35] LABS: Alanine Aminotransfer (ALT/SGP 11 U/L (12-78); Albumin, Blood 2.8 g/dL (3.4-5.0); Albumin/Globulin Ratio 0.7 (0.8-1.8); Alk Phos 92 U/L (50-136); Anion Gap 4 mmol/L (6-16); Aspartate Aminotrans (AST/SGOT 10 U/L (12-37); Bilirubin, Total 0.5 mg/dL (0.1-1.0); Blood Urea Nitrogen 14 mg/dL (8-24); CO2, Blood 32 mmol/L (21-32); Calcium, Blood 9.5 mg/dL (8.5-10.1); Chloride, Blood 104 mmol/L (98-108); Globulin, Blood 4.3 g/dL (2.2-4.0); Glomerular Filtration Rate >60 (60-); Glucose, Blood 134 mg/dL (70-99); Potassium, Blood 3.8 mmol/L (3.5-5.5); Sodium, Blood 140 mmol/L (136-145); Total Protein, Blood 7.1 g/dL (6.4-8.2)
--- NOTE | 2021-06-04 18:40 | NUR ---
PT REMAINS WITH GARBLED SPEECH, LT ARM WITHOUT MOVEMENT, SOME GROSS MOVEMENT OF LT LEG, GOOD STRENGTH TO RT ARM AND LEG. LT FACIAL DROOP NOTED, SMILE IS UNEQUAL, PT UNABLE TO BLOW OUT CHEECKS. PT AWAKENS TO VERBAL STIMULI, SHE IS ABLE TO MAKE NEEDS KNOWN THROUGH BROKEN GARBLED SPEECH. UNEQUAL PUPILS THAT ARE SLUGGISH TO LIGHT. PT REPORTS PAIN TO BACK, PER FAMILY PT WITH HX OF CHRONIC PAIN AND SEES A PAIN SPECIALIST, SHE HAS BEEN TREATED T/O THE DAY FOR PAIN.
--- NOTE | 2021-06-04 20:50 | NUR ---
ASSUMED CARE OF PT AT 1900. A/OX4 BUT VERY LETHARGIC WITH GARBLED SPEECH. L FACIAL DROOP WITH EYE GAZE TO RIGHT, RT PUPUL 4 BRISK, LT 3 BRISK. LT LEG WEAKNESS AND LT ARM NO MOVEMENT, RT WNL. C/O PAIN TO BLE, TREATED PER EMAR. MAINTAINING ABOVE 92% ON 4L NC, LUNGS CLEAR T/O. COUGH NOTED THAT PT IS ABLE TO SUCTION SECRETIONS - CLEAR/THIN. SINUS AT 89, BLE PEDALS FAINT, STRONG RADIALS. ORTIZ DRAINING TO GRAVITY WITH YELLOW/CLEAR URINE. SKIN BREAKDOWN TO LEELA AREA AND FOLDS. WILL UPDATE WITH ANY CHANGES THIS SHIFT.
[2021-06-05 04:04] LABS: Hematocrit 42.1 % (33.0-51.0); Hemoglobin 12.6 g/dL (11.5-16.0); Mean Corpuscular HGB 26.7 pg (26.0-34.0); Mean Corpuscular HGB Conc 29.9 g/dL (31.5-36.5); Mean Corpuscular Volume 89 fL (80-100); Mean Platelet Volume 11.3 fL (9.1-12.4); Platelet Count 263 K/mm3 (150-400); RDW Coefficient Variation 15.9 % (11.7-14.2); RDW Standard Deviation 52.1 fL (35.1-46.3); Red Blood Cell Count 4.72 M/mm3 (3.80-5.20); White Blood Cell Count 10.69 K/mm3 (4.00-11.30)
[2021-06-05 04:31] LABS: Alanine Aminotransfer (ALT/SGP 11 U/L (12-78); Albumin, Blood 2.5 g/dL (3.4-5.0); Albumin/Globulin Ratio 0.6 (0.8-1.8); Alk Phos 86 U/L (50-136); Anion Gap 5 mmol/L (6-16); Aspartate Aminotrans (AST/SGOT 9 U/L (12-37); Bilirubin, Total 0.5 mg/dL (0.1-1.0); Blood Urea Nitrogen 15 mg/dL (8-24); Bun/Creatinine Ratio 22.4 (12.0-20.0); CO2, Blood 29 mmol/L (21-32); Calcium, Blood 9.7 mg/dL (8.5-10.1); Chloride, Blood 107 mmol/L (98-108); Creatinine, Blood 0.67 mg/dL (0.40-1.00); Globulin, Blood 4.3 g/dL (2.2-4.0); Glomerular Filtration Rate >60 (60-); Glucose, Blood 116 mg/dL (70-99); Potassium, Blood 3.8 mmol/L (3.5-5.5); Sodium, Blood 141 mmol/L (136-145); Total Protein, Blood 6.8 g/dL (6.4-8.2)
--- NOTE | 2021-06-05 15:27 | NUR ---
F/U visit this afternoon. Pt resting in bed conversing with her Jose who is at bedside. Primary RN Selena paredes to offer pain medication. Engaged in therpeutic discussion regarding advanced care planning including the importance of knowing Pt's wishes if no clinical improvement. Offered therapeutic listening and discussed potential outcomes. Discussed code status and educated on life sustaining measures including risk factors and implications of CPR. Discussed the importance of knowing Pt's wishes if PEG-Tube is recommended. Jose reports losing his father and uncle this year due to strokes. Jose inquires about when to consider comfort care. Instructed on the importance of allowing the hospitalists to guide in that decision if needed. Jose reports plan to discuss further with his spouse (Pt) regarding her wishes. No other concerns reported at this time. This RN is out in the martinez when Pt's spouse Jose comes and reports Pt's wishes are for DNR and is still thinking about PEG-Tube. He reports she is leaning towards not wanting a PEG-Tube. He reports plan to discuss further with Pt and Pt's son. Spoke with Dr Nice and relayed conversation including Pt's wishes for DNR. Placed DNR order in [facility] per V/O from Dr Nice. Palliative Care will remain available.
--- NOTE | 2021-06-05 18:14 | NUR ---
PT REMAINS NPO SHE WAS NARROWLY ABLE TO TOLERATE ICE CHIPS UPON SPEECH THERAPY EVALUATION TODAY. ORAL CARE HAS BEEN PERFORMED OFTEN TODAY, PT IS ABLE TO INTERMITTENTLY USE SUCTION TO CLEAR MOUTH OF SECRETIONS BUT IS NOT LEFT IN ROOM WHILE PT UNSUPERVISED PT BEGINS CHEWING ON SUCTION. ORTIZ DRAINING WELL TO GRAVITY. LT ARM MOVEMENT REMAINS ABSENT, WEAKNESS TO LT LEG, GOOD STRENGTH TO RT ARM AND LEG. LT FACIAL DROOP NOTED, RT SIDED GAZE APPEARS TO BE IMPROVING. BP HAS BEEN WELL WITHIN PARAMETERS, NO INTERVENTION HAS BEEN REQUIRED FOR BP CONTROL. PT DOES ANSWER QUESTIONS CORERCTLY WHEN WHEN ASKED, GARBLED SPEECH REMAINS. PT ORIENTED TO PERSON, FAMILY, AND OCCASIONALLY PLACE
--- NOTE | 2021-06-05 22:19 | NUR ---
ASSUMED CARE OF PT AT 1900. PATIENT IS NOW DNR STATUS. PATIENT IS A/OX4, WITH INCREASED RESTLESSNESS TONIGHT WITH HER STATING SHE "WANTS TO GO HOME", AND REPEATEDLY ASKING FOR ICE CHIPS. EDUCATED PATIENT ON ASPIRATION PRECAUTIONS AND SHE STATED SHE UNDERSTOOD. STILL HAVING PAIN IN LOWER EXTREMITIES THAT IS RELIEVED WITH PRN MEDICATION. LEFT ARM WITH NO MOVEMENT, LEFT LEG WITH MINIMAL DORSIFLEXION OF THE BIG TOE. RIGHT ARM AND LEG WITH FULL MOVEMENT. RADIAL PULSES +2 BL, PEDALS +1 BL. RT PUPIL 3 SLUG, LT PUPIL 4 SLUG. FACIAL DROOPING STILL PRESENT. FEET ARE NOTED TO BE MORE RED IN COLOR OPPOSED TO YESTERDAY. SKIN IS ALSO VERY EASILY INDENTED WITH SOMETHING EVEN LIGHT A SHEET. LS DIM T/O WITH COARSE COUGH NOTED FROM SECRETIONS IN THROAT THAT ARE ROUTINELY SUCTIONED (PATIENT CAN DO THIS HERSELF). SINUS RHYTHM ON MONITOR. ORTIZ CATH DRAINING TO GRAVITY WITH SCANT ADALID URINE. WILL UPDATE IF ANY CHANGES THIS SHIFT.
[2021-06-06 04:03] LABS: BASOPHILS ABSOLUTE AUTO 0.05 K/mm3 (0.00-0.23); BASOPHILS PERCENT AUTO 1 % (0-2); EOSINOPHILS ABSOLUTE AUTO 0.37 K/mm3 (0.00-0.68); EOSINOPHILS PERCENT AUTO 4 % (0-6); Hematocrit 43.8 % (33.0-51.0); Hemoglobin 12.9 g/dL (11.5-16.0); IMMATURE GRAN ABSOLUTE AUTO 0.04 K/mm3 (0.00-0.10); IMMATURE GRAN PERCENT AUTO 0 % (0-1); LYMPHOCYTES ABSOLUTE AUTO 1.52 K/mm3 (0.84-5.20); LYMPHOCYTES PERCENT AUTO 15 % (21-46); MONOCYTES ABSOLUTE AUTO 1.02 K/mm3 (0.16-1.47); MONOCYTES PERCENT AUTO 10 % (4-13); Mean Corpuscular HGB 26.6 pg (26.0-34.0); Mean Corpuscular HGB Conc 29.5 g/dL (31.5-36.5); Mean Corpuscular Volume 90 fL (80-100); Mean Platelet Volume 11.4 fL (9.1-12.4); NEUTROPHILS ABSOLUTE AUTO 7.15 K/mm3 (1.96-9.15); NEUTROPHILS PERCENT AUTO 71 % (41-73); Platelet Count 250 K/mm3 (150-400); RDW Coefficient Variation 15.9 % (11.7-14.2); RDW Standard Deviation 52.5 fL (35.1-46.3); Red Blood Cell Count 4.85 M/mm3 (3.80-5.20); White Blood Cell Count 10.15 K/mm3 (4.00-11.30)
[2021-06-06 04:26] LABS: Anion Gap 6 mmol/L (6-16); Blood Urea Nitrogen 17 mg/dL (8-24); Bun/Creatinine Ratio 26.4 (12.0-20.0); CO2, Blood 30 mmol/L (21-32); Calcium, Blood 9.5 mg/dL (8.5-10.1); Chloride, Blood 108 mmol/L (98-108); Creatinine, Blood 0.65 mg/dL (0.40-1.00); Glomerular Filtration Rate >60 (60-); Glucose, Blood 98 mg/dL (70-99); Potassium, Blood 3.7 mmol/L (3.5-5.5); Sodium, Blood 144 mmol/L (136-145)
--- NOTE | 2021-06-06 10:17 | NUR ---
Spoke with Dr Nice prior to Pt visit and discussed case. Pt resting in bed upon arrival. Pt is A&O and reports 7/10 pain in her feet, legs, and back. Primary RN Austyn at bedside and will offer pain medication. Called and left message withh Pt's spouse Ray with request for a return phone call. Palliative Care will remain available.
--- NOTE | 2021-06-06 12:44 | NUR ---
UPDATE PT REPORTED PAIN OF HER LEFT FOOT. UPON ASSESSING PT FOOT, PT REPORTED MORE PAIN WHEN THIS RN WOULD TOUCH HER FOOT. PT FOOT WAS RED AND WARM TO TOUCH . WHEN LEAVING PT ROOM, THIS RN COVERED PT FOOT WITH BED SHEET. PT REPORTED PAIN WITH THE BED SHEET TOUCHING HER FOOT. THIS RN CONTACTED DR SCOTT AT 1240 FOR THE UPDATE. NO ADDITIONAL OREDERS AT THIS TIME.
--- NOTE | 2021-06-06 15:09 | NUR ---
UPDATE PT PAIN LEVEL HAS BEEN INCREASING. DR SCOTT NOTIFIED; TORADOL ODERED. PT RECIEVED TORADOL PER EMAR, PAIN LEVEL STILL INCREASED. PT THEN RECIEVED FENANYL PER EMAR. PT PAIN LEVEL REPORTED TO STILL INCREASE. PT DESCRIBED PAIN "SCRATCHING UP THE BACK OF MY LEG." PT REPORTS THAT THE PAIN HAS BEEN MOVING UP HER LEGS. PT SBP >180, HYDRALAZINE GIVEN PER EMAR. SBP CAME DOWN TO 177. WILL CONTINUE MONITOR.
--- NOTE | 2021-06-06 19:27 | NUR ---
SHIFT SUMMARY PT A/O X4 AND COOPERATIVE OF CARE. PT SBP RANGED 160-180'S, TREATED PER EMAR. PT ON 4L NC WITH 02 SATS >96% T/O SHIFT. NO REPORTS OF CHEST PAIN/PRESSURE T/O SHIFT. PT AHS LEFT SIDED NEGLECT R/T CVA. PT HAD EPISODES OF SEVER PAIN IN HER LEFT FOOT THAT BEGAN TO MOVE UP TO HER KNEE, TREATED PER EMAR. PT STARED ON CLINIMIX PER EMAR. PT REQUESTS FREQUENT MOUTH CONDITONER DUE TO DRY MOUTH. PT NPO AWIATING EVAL FROM SPEECH THERAPY. PT HAS GARBLED SPEECH R/T CVA. PT HAS ORTIZ DRAINING TO GRAVITY, ADALID URINE.
[2021-06-07 05:09] LABS: Anion Gap 5 mmol/L (6-16); Blood Urea Nitrogen 21 mg/dL (8-24); Bun/Creatinine Ratio 35.4 (12.0-20.0); CO2, Blood 32 mmol/L (21-32); Calcium, Blood 9.9 mg/dL (8.5-10.1); Chloride, Blood 108 mmol/L (98-108); Creatinine, Blood 0.59 mg/dL (0.40-1.00); Glomerular Filtration Rate >60 (60-); Glucose, Blood 140 mg/dL (70-99); Potassium, Blood 3.6 mmol/L (3.5-5.5); Sodium, Blood 145 mmol/L (136-145)
--- NOTE | 2021-06-07 06:41 | NUR ---
PT IS HYPERTENSICE [id number] THROUGHOUT SHIFT. ADMINISTERED HYDRALAZINE, VASOTEC WITHOUT IMPROVEMENT.DEVELOPED NOSE BLEED. DISCUSSED WITH ONCALL AND ADMINISTERED LABETATLOL 10 MG IV. SBP IS NOT SUSTAINING BELOW 180. O2 SAT DROPS TO 70-80& WHEN PT REMOVED o2. PT ASKING FOR ORAL INTAKE THROUGHOUT SHIFT. EXPLAINING NPO STATUS FOR SEVERE FACIAL DROOP. PT IS ALSO PRESENTING WITH LEFT SIDE FLACCID WITH INTERMITTEDNT LETF EXRTEMITIES PAIN.
--- NOTE | 2021-06-07 12:33 | NUR ---
PATIENT ALERT AND ORIENTED X3-4. LEFT FACIAL DROOP WELL LEFT SIDED FLACIDITY AND WEAKNESS. ABLE TO FEEL LEFT SIDE BUT NOT MOVING AT THIS TIME. SPEECH IS GARBELED AND HARD TO UNDERSTAND AT TIMES. PUPILS EQUAL AND REACTIVE. ON 4 L 02 VIA NASAL CANNULA SATING LOW-MID 90'S. OCCASIONAL WEAK COUGH. UNABLE TO PRODUCE SPUTUM. LUNGS SOUNDING DIM AND OCCASIONAL AUDITORY WHEEZING. Q4 ORAL CARE. TELE SHOWING SINUS RHYTHM WITH HR 70-80'S. DENIES CHEST PAIN/PRESSURE. BLOOD PRESSURE GOAL PER DR. SCOTT SBP BELOW 220 AND ABOVE 120. SBP TRENDING IN 180'S. ABDOMINAL DISTENTION AND TENDER UPON PALPATION. BOWEL MOVEMENT THIS AM. ORTIZ CATH IN PLACE DRAINING URINE TO GRAVITY. 24 HOUR URINE COLLECTION STARTED THIS AM AT 1100. SPEECH INTO SEE PATIENT THIS AM, REMAINS NPO. RIGHT UPPER ARM POWER GLIDE IN PLACE. COMPLAINS OF BILATERAL LOWER LEG PAIN INTERMITTENTLY, RELIEVED BY REPOSITIONING. Q2 TURNING. CALL LIGHT IN REACH. WILL CONTINUE TO MONITOR.
--- NOTE | 2021-06-08 00:34 | NUR ---
BP after hydralazine 20mg IV, 158/76. pt requesting no more BP check this shift due to discomfort of pressure cuff. In order to follow comfort measures, will adhear to holding off on BP checks for remainder of shift.
--- NOTE | 2021-06-08 08:14 | NUR ---
PT REPOSITIONED IN BED, FENTANYL GIVEN FOR COMFORT, ORAL CARE PROVIDED. WILL MONITOR
--- NOTE | 2021-06-08 10:59 | NUR ---
pt minimally responsive repirations are changing. will monitor for oversedation or halluciantions.
--- NOTE | 2021-06-08 13:44 | NUR ---
PT REPOSITIONED IN BED, ORAL CARE AND SWAB PROVIDED PT HAS BEEN ASKING FOR WATER BUIT IS UNABLE TO TOLERATE. MOUTH SWABS AND BIOTENE SPRAY FOR COMFORT. PT ALSO ASKING FOR MUSCLE RELAXER, PAIN MEDS WAS GIVEN FOR COMFORT.
--- NOTE | 2021-06-08 13:49 | NUR ---
Patient is lying in bed and minimally responsive. This Insurance Account Representative has visited with patient during prior hospitalizations and I am aware of her spiritual beliefs. I explain to patient who I am and ask her if I could say a prayer for her. She nods her head affirmingly. I gladly provide prayer. Patient reaches up to grab my hand and I hold it for a little while until she loses all strength. I let her go back to resting. I will continue to remain available to patient and family.
--- NOTE | 2021-06-08 17:54 | NUR ---
Met with nica son and her sister in law. Son is struggling with her changes and if they made the right choice. The had many questions tried to answer them briefly and encourged them to express their feelings. We reviewed peg tubes, intubation, we reviewed her diagnositics. We dsicussed her struggles with decling health the past year. He son stated she went through several diffent bolld pressure medications with poor tolerance and response. We discussed the hasheness of making decisions for loved one. Son expressed feeling a little relief and understanding. They settled at bedside and stayed with pt. will follow up with family.
--- NOTE | 2021-06-09 10:01 | NUR ---
Case Conference Note Attempted to see Pt and currently has visitor in the room. Will attempt to see Pt later today. Spoke with Primary RN Sally and discussed case. Spoke with Welder/Fitter Vivi and discussed case. Palliative Care will remain available.
--- NOTE | 2021-06-09 15:46 | NUR ---
Received phone call from Pt's spouse Jose. Offered therapeutic listening as Jose reports not understanding plan for Pt. Gentle education on plan of care and potential D/C needs. Answered questions. Jose expresses appreciation and reports no other concerns at this time. Pt's son Timbo is at bedside. Provided update and discussed Pt's prognosis. Discussed the potential for Pt's spouse needing help with completing [employer] paperwork. Pt resting in bed and appears dyspneic as evidenced by work of breathing. Timbo expresses appreciation of visit and reports no other concerns. Spoke with Primary RN Sally and reported Pt's dyspnea. Sally sakshi offer comfort medications. Palliative Care will remain available
--- NOTE | 2021-06-10 14:40 | NUR ---
Pal Care comfort care visit. Pt had just been repositioned and bathed upon my arrival. Increased resp rate, work of breathing noted and grunting/moaning with exhale noted. Pt unresponsive to voice or touch. Discussed Rxs and POC with RN. I requested that pt be medicated for s/s noted during assessment. No family visitors present at the time of my visit.
--- NOTE | 2021-06-10 14:49 | NUR ---
Spiritual care visit conducted. Patient's spouse, Jose, is bedside and immediately shares his spiritual distress about unanswered prayers and the recent loss of the people that he loves. I provide therapeutic listening, pastoral teen counselor and prayer. Jose responds well and shows signs of increased peace. I will continue to remain available.
--- NOTE | 2021-06-10 23:26 | NUR ---
PATIENT HAS FAMILY AT BEDSIDE, [facility] COMPLETED NEW ORDERS TO MANAGE SECRETIONS, SUCTIONING PROVIDED AND FAMILY EDUCATION ON MEDICATION. PATIENT IS RESTING COMFORTABLE IN BED, FAMILY IS NOT WANTING TO MOVE PATIENT UNTIL EXHIBITS SIGNS OF PHYSICAL DISCOMFORT SPECIFICALLY IN HER LEGS. PATIENT IS MOANING, GROANING, AUDITORY CRACKLES AND RALES NOTED, PALE, WARM TO TOUCH DOESN'T RESPOND OR OPEN EYES.
--- NOTE | 2021-06-11 01:25 | NUR ---
PATIENT WAS GIVEN ROXINOL 20MG SUBLINGUAL PREVIOUS 10MG PATIENT WAS STILL EXHIBITING RAPID RR 30-50 AIR HUNGER MOANING, INCREASE SECRETIONS, ORAL CARE PROVIDED AND SUCTIONING, ATROPINE GIVEN.
--- NOTE | 2021-06-11 03:30 | NUR ---
PATIENT AT 0329 THIS AM, FAMILY AT BEDSIDE HER SON AND AYAN. HAS STATED PATIENT TO GO TO [facility] AND HE WILL TAKE ALL PERSONAL ITEMS HOME WITH HIM. CURRENTLY FAMILY IS AT BEDSIDE.
--- NOTE | 2021-06-11 04:41 | NUR ---
PATIENT PASSED AT 0329, CALLED, DONOR CALLED REFERENCE NUMBER [id number], RAY , HUBER SON AT BEDSIDE TOOK ALL PATIENT BELONGINGS HOME, PATIENT WAS BATHED SCOPOLMINE PATCH REMOVED, FENTANYL PATCH REMOVED AND 2ND RN VERFICATION OF WASTE BRENDA DALEY RN, ICE APPLIED TO EYES AWAITING NOTIFICATION FROM DONOR REFERRAL IF PATIENT IS A CANDIATE, ALL DOCUMENTS FAXED TO [phone] TO ENGINEERING ADMINISTRATOR [facility].
[2021-06-15 18:10] LABS: METANEPHRINE, PL 59.3 pg/mL (0.0-88.0)
== END 2021-06-11 06:40 | DRG 64 ==
LOC: ER 12:01 → PCU 16:18
PROVIDERS: Emergency Medicine; Family Medicine; Internal Medicine; Physician Assistant; ADMIT Internal Medicine
DX: I63.511 Cerebral infarction due to unspecified occlusion or stenosis of right middle cerebral artery (principal); J96.01 Acute respiratory failure with hypoxia; Z68.43 Body mass index [BMI] 50.0-59.9, adult; E87.2 Acidosis; N39.0 Urinary tract infection, site not specified; G81.94 Hemiplegia, unspecified affecting left nondominant side; I16.1 Hypertensive emergency; E78.5 Hyperlipidemia, unspecified; Z66 Do not resuscitate; I10 Essential (primary) hypertension; Z51.5 Encounter for palliative care; E11.9 Type 2 diabetes mellitus without complications; R04.0 Epistaxis; Z20.822 Contact with and (suspected) exposure to COVID-19; R29.720 NIHSS score 20; F32.A Depression, unspecified; F43.10 Post-traumatic stress disorder, unspecified; E66.01 Morbid (severe) obesity due to excess calories; B36.9 Superficial mycosis, unspecified; K21.9 Gastro-esophageal reflux disease without esophagitis; F41.1 Generalized anxiety disorder; Z90.49 Acquired absence of other specified parts of digestive tract; Z98.890 Other specified postprocedural states; Z99.3 Dependence on wheelchair; Z87.891 Personal history of nicotine dependence; Z88.2 Allergy status to sulfonamides; Z91.040 Latex allergy status; Z88.8 Allergy status to other drugs, medicaments and biological substances
CPT/HCPCS: 36415; 51702; 70450; 70496; 70498; 71045; 80048; 80053; 81001; 82947; 83605; 83835; 84484; 85025; 85027; 85610; 85730; 92526; 92610; 93005; 93010; 93306; 93970; 94760; 96374; 97110; 97162; 99285-25; A9270; C1751; J0360; J0696; J1650; J1885; J2060; J2270; J2405; J2997; J3010; J7030; Q3014; Q9967; U0004